=== PATIENT | male | born 1965 | race Caucasian/White ===

== ENCOUNTER 2017-06-21 03:19 | Observation (INO) | payer BC, OTHER ==
[2017-06-21 04:49] LABS: ADD MAN DIFF? NO
[2017-06-21 04:51] LABS: WHITE BLOOD COUNT 8.9 10^3/ul (4.8-10.8)
[2017-06-21 04:51] LABS: BASOPHIL # 0.1 10^3/ul (0.0-0.1); BASOPHILS % 1.4 % (0.0-2.0); EOSINOPHILS # 0.9 10^3/ul (0.0-0.5); HEMATOCRIT 39.7 % (42.0-52.0); HEMOGLOBIN 13.6 g/dl (14.0-18.0); LYMPHOCYTES # 3.2 10^3/ul (0.8-2.9); LYMPHOCYTES % 35.8 % (15.0-51.0); MEAN CORPUSCULAR HEMOGLOBIN 30.9 pg (29.0-33.0); MEAN CORPUSCULAR HGB CONC 34.3 g/dl (32.0-37.0); MEAN CORPUSCULAR VOLUME 90.2 fl (82.0-101.0); MEAN PLATELET VOLUME 10.5 fl (7.4-10.4); MONOCYTE # 0.6 10^3/ul (0.3-0.9); MONOCYTES % 6.9 % (0.0-11.0); NEUTROPHIL # 4.1 10^3/ul (1.6-7.5); NEUTROPHILS % 45.7 % (39.0-77.0); PLATELET COUNT 236 10^3/UL (140-415); RED CELL DISTRIBUTION WIDTH 11.9 % (11.5-14.5)
[2017-06-21 05:09] LABS: ANION GAP 19 (8-16); BLOOD UREA NITROGEN 15 mg/dl (7-20); CALCIUM 9.8 mg/dl (8.4-10.2); CARBON DIOXIDE 25 mmol/L (21-31); CHLORIDE 105 mmol/L (97-110); GLUCOSE 104 mg/dl (70-220); POTASSIUM 3.7 mmol/L (3.5-5.1); SODIUM 145 mmol/L (135-144)
[2017-06-21] MEDS: ASPIRIN 325 MG TAB PO (05:14)
[2017-06-21 05:22] LABS: B-TYPE NATRIURETIC PEPTIDE 45 PG/ML (0-125)
[2017-06-21 05:40] LABS: TROPONIN-I < 0.012 ng/ml (0.00-0.12)
[2017-06-21] MEDS ORDERED: SOD CHLORIDE 0.9% 100 ML (06:57)
[2017-06-21] MEDS ORDERED: IOHEXOL 100 ML (06:57)
[2017-06-21] MEDS ORDERED: IOHEXOL 350MG/ML 50 ML BTL (06:57)
[2017-06-21] MEDS ORDERED: ONDANSETRON 4 MG INJ IV ×2 (08:00→11:00)
[2017-06-21] MEDS ORDERED: ACETAMINOPHEN 325 MG TAB PO ×2 (08:00→11:00)
[2017-06-21] MEDS ORDERED: HYDROCODONE/APAP (5/325) TAB PO (11:00)
[2017-06-21] MEDS ORDERED: morphine LIQ (10 MG/5 ML) CUP PO (11:00)
[2017-06-21] MEDS ORDERED: NACL 0.9% 3 ML SYG IV (11:00)
[2017-06-21 12:44] LABS: CREATINE KINASE 169 IU/L (23-200)
[2017-06-21 12:50] LABS: HEMOGLOBIN A1C 5.6 % (0-5.9)
[2017-06-21 12:58] LABS: CK INDEX 1.1
[2017-06-21] MEDS: ALBUTEROL/IPRATROPIUM (NEB) 3 ML AMP HHN (13:02)
[2017-06-21 13:03] LABS: CK-MB 1.84 ng/ml (0.0-2.4); TROPONIN-I < 0.012 ng/ml (0.00-0.12)
[2017-06-21] MEDS ORDERED: FAMOTIDINE 20 MG INJ IV (21:00)
[2017-06-22] MEDS ORDERED: ENOXAPARIN 40 MG/0.4 ML SYG SC (09:00)
[2017-06-22] MEDS ORDERED: ASPIRIN 81 MG TAB PO (09:00)
== END 2017-06-21 14:00 | disposition home or self-care (01) ==
LOC: TEL 07:35 → E/R 03:19
DX: R07.89 Other chest pain (principal); J45.909 Unspecified asthma, uncomplicated; I10 Essential (primary) hypertension; E78.5 Hyperlipidemia, unspecified; E78.00 Pure hypercholesterolemia, unspecified; K76.0 Fatty (change of) liver, not elsewhere classified; Z79.82 Long term (current) use of aspirin
CPT/HCPCS: 36415; 71045; 71275; 80048; 82550; 82553; 83036; 83880; 84484; 85025; 87400; 93005; 93306; 94664; 99217; 99285-25